=== PATIENT | female | born 1990 | race Caucasian/White ===

== ENCOUNTER 2019-01-02 10:16 | Emergency (ER) | payer OTHER ==
[~2019-01-02] VITALS: Ht 160 cm; Wt 89.8 kg
[~2019-01-02 10:16] MED LIST: ADVIL200 MG PO; CRUTCH1 EACH MISC; NAPROXEN500 MG PO; NORCO 5-325 TA1 EACH PO
== END 2019-01-02 11:25 | disposition home or self-care (01) ==
LOC: ED 10:16
DX: S93.602A Unspecified sprain of left foot, initial encounter (principal); W22.8XXA Striking against or struck by other objects, initial encounter; F41.9 Anxiety disorder, unspecified
CPT/HCPCS: 73630; 99283-25

== ENCOUNTER 2019-10-08 18:27 | Emergency (ER) | payer OTHER ==
[~2019-10-08] VITALS: Ht 160 cm; Wt 89.8 kg
[2019-10-08] MEDS ORDERED: ACYCLOVIR400 MG PO (18:37)
--- NOTE | 2019-10-09 13:08 | EKG ---
[facility] [address] [facility] [place], [place] [address] Signed Normal sinus rhythm Normal ECG No previous ECGs available Confirmed by AGUS WESTON MD ([id number]) on 10/09/2019 1:07:40 PM Electronically Signed By: AGUS WESTON MD 10/09/19 1308 PATIENT NAME: ELIJAH BLOUNT Electrocardiogram DATE OF : 88 PHYSICIAN: AGUS WESTON MD REPORT #: [id number] REPORT IS CONFIDENTIAL AND NOT TO BE RELEASED WITHOUT AUTHORIZATION
== END 2019-10-08 19:37 | disposition home or self-care (01) ==
LOC: ED 18:27
DX: I49.3 Ventricular premature depolarization (principal); F41.9 Anxiety disorder, unspecified; Z87.891 Personal history of nicotine dependence; Z79.899 Other long term (current) drug therapy
CPT/HCPCS: 71046; 93005; 93010; 99285-25

== ENCOUNTER 2022-03-30 16:56 | Emergency (ER) | payer OTHER ==
[~2022-03-30] VITALS: Ht 160 cm; Wt 89.8 kg
[~2022-03-30 16:56] MED LIST changes: +ACYCLOVIR400 MG PO
[2022-03-30] MEDS ORDERED: HYDROXYZINE HCL25 MG PO (17:05)
[2022-03-30] MEDS ORDERED: METOPROLOL TART25 MG PO (17:58)
--- NOTE | 2022-04-02 13:02 | EKG ---
[facility] [address] [facility] [place] [address] Signed Sinus rhythm with occasional premature ventricular complexes Prolonged QT Abnormal ECG When compared with ECG of 08-OCT-2019 18:33, premature ventricular complexes are now present Confirmed by AUBREY GARCIA MD ([id number] on 04/02/2022 1:02:29 PM Electronically Signed By: AUBREY GARCIA MD 04/02/22 1302 PATIENT NAME: ROSALES BLOUNTGARRETT POSADA Electrocardiogram DATE OF : 88 PHYSICIAN: AUBREY GARCIA MD REPORT #: [id number] REPORT IS CONFIDENTIAL AND NOT TO BE RELEASED WITHOUT AUTHORIZATION
== END 2022-03-30 18:14 | disposition home or self-care (01) ==
LOC: ED 16:56
DX: I49.3 Ventricular premature depolarization (principal); Z87.891 Personal history of nicotine dependence
CPT/HCPCS: 36415; 80053; 83735; 84436; 84443; 84484; 85025; 93005; 93010; 99285-25

== ENCOUNTER 2023-03-09 12:51 | Emergency (ER) | payer OTHER ==
[~2023-03-09] VITALS: Ht 160 cm; Wt 87.0 kg
[~2023-03-09 12:51] MED LIST changes: +HYDROXYZINE HCL25 MG PO; +METOPROLOL TART25 MG PO
[2023-03-09] MEDS ORDERED: AMOX TR-K CLV1 EAC1 PO (13:21)
[2023-03-09 13:38] VITALS: BP 122/79
== END 2023-03-09 13:26 | disposition home or self-care (01) ==
LOC: ED 12:51
DX: K04.7 Periapical abscess without sinus (principal); Z79.899 Other long term (current) drug therapy; Z87.891 Personal history of nicotine dependence
CPT/HCPCS: 99282

== ENCOUNTER 2024-09-13 07:11 | Emergency (ER) | payer OTHER ==
[~2024-09-13] VITALS: Ht 160 cm; Wt 91.0 kg
[~2024-09-13 07:11] MED LIST changes: +AMOX TR-K CLV1 EAC1 PO
[2024-09-13] MEDS ORDERED: ACETAMINOPHEN 500 MG TAB PO ONE (07:30)
[2024-09-13] MEDS ORDERED: IBUPROFEN 600 MG TAB PO ONE (07:30)
[2024-09-13] MEDS ORDERED: PROZAC20 MG PO (07:36)
[2024-09-13 08:09] VITALS: BP 126/89
== END 2024-09-13 08:10 | disposition home or self-care (01) ==
LOC: ED 07:11
DX: M25.561 Pain in right knee (principal); Z79.899 Other long term (current) drug therapy; Z87.891 Personal history of nicotine dependence
CPT/HCPCS: 73560; 99283; A9270

== ENCOUNTER 2025-02-22 15:31 | Emergency (ER) | payer OTHER ==
[~2025-02-22] VITALS: Ht 160 cm; Wt 86.8 kg
[~2025-02-22 15:31] MED LIST changes: +PROZAC20 MG PO
[2025-02-22 15:49] LABS: BASOPHILS 0.8 % (0.1-1.2); EOSINOPHILS 1.0 % (0.7-5.8); LYMPHOCYTES 40.8 % (19.3-51.7); MCH 30.3 PG (25.6-32.2); MCHC 35.1 g/dL (32.2-35.5); MCV 86.4 fL (79.4-94.8); MONOCYTES 7.4 % (4.7-12.5); NEUTROPHILS 49.8 % (34.0-71.1); RBC 5.01 M/uL (3.93-5.22)
[2025-02-22] MEDS ORDERED: HYDROXYZINE HCL25 MG PO (15:54)
[2025-02-22 16:13] LABS: ALT (SGPT) 24.0 U/L (14-59); AST (SGOT) 14.0 U/L (15-37); GLOMERULAR FILTRATION RATE,EST 117.0 mL/min (>60); PROTEIN, TOTAL 7.3 g/dL (6.4-8.2); UREA NITROGEN 16.0 mg/dL (7-18)
--- NOTE | 2025-02-23 17:47 | EKG ---
[facility] [address] [facility] [place] [address] Signed Normal sinus rhythm with sinus arrhythmia Prolonged QT Abnormal ECG When compared with ECG of 30-MAR-2022 17:00, premature ventricular complexes are no longer present Confirmed by Fantasma Chapman DO ([id number]) on 02/23/2025 5:46:58 PM Electronically Signed By: FANTASMA CHAPMAN DO 02/23/25 1747 PATIENT NAME: JOSE ALEJANDROELIJAH Electrocardiogram DATE OF : 88 PHYSICIAN: FANTASMA CHAPMAN DO REPORT #: [id number] REPORT IS CONFIDENTIAL AND NOT TO BE RELEASED WITHOUT AUTHORIZATION
== END 2025-02-22 17:56 | disposition home or self-care (01) ==
LOC: ED 15:31
PROVIDERS: Emergency Medicine
DX: R07.9 Chest pain, unspecified (principal); Z87.891 Personal history of nicotine dependence
CPT/HCPCS: 36415; 71045; 80053; 83735; 84484; 85025; 93005; 93010; 99284-25